=== PATIENT | female | born 1960 ===

== ENCOUNTER 2025-05-01 07:15 | Inpatient (IN) | payer OTHER ==
[~2025-05-01] VITALS: Ht 203.2 cm; Wt 59.0 kg
[2025-05-01] MEDS ORDERED: JANUMET 50-5001 EACH PO (07:46)
[2025-05-01] MEDS ORDERED: SIMVASTATIN5 MG (07:47)
[2025-05-01] MEDS ORDERED: ZESTRIL30 MG PO (07:47)
[2025-05-01] MEDS ORDERED: BETHANECHOL CHL50 MG PO (07:48)
[2025-05-01 07:52] VITALS: BP 113/73
[2025-05-01 08:17] LABS: BASO % 0.5 % (0.1-1.2); EOS # 0.13 (0.04-0.54); EOS % 2.2 % (0.7-7.0); HEMOGLOBIN 13.6 g/dL (11.2-15.7); LYMPH # 2.21 (1.18-3.74); LYMPH % 37.6 % (19.3-53.1); MEAN CORPUSCULAR HEMOGLOBIN 29.3 pg (25.6-32.2); MONO # 0.57 (0.24-0.82); MONO % 9.7 % (4.7-12.5); NEUT # 2.92 (1.56-6.13); NEUT % 49.8 % (34.0-71.1); PLATELET COUNT 288 K/uL (163-369); RED BLOOD COUNT 4.64 M/uL (3.93-5.22); RED CELL DISTRIBUTION WIDTH 13.2 % (11.6-14.4)
[2025-05-01 08:39] LABS: PH,URINE 6.5 (5.0-8.0); URINE APPEARANCE Clear; URINE BILIRRUBIN Negative (NEGATIVE); URINE BLOOD Negative; URINE COLOR Yellow; URINE GLUCOSE Negative (NEGATIVE); URINE KETONE Negative (NEGATIVE); URINE LEUKOCYTE Moderate; URINE NITRATE Negative; URINE PROTEIN Negative (NEGATIVE); URINE UROBILINOGEN 0.2 E.U./dl
[2025-05-01 08:44] LABS: INR 1.04; PARTIAL THROMBOPLASTIN TIME 27.3 SECONDS (22.0-34.0); PROTHROMBIN TIME 11.3 SECONDS (9.0-11.5); URINE EPITHELIAL CELLS 99.1 uL (0.0-38.8); URINE RBC 8.5 uL (0.0-20.8); URINE WBC 63.1 uL (0.0-23.2)
[2025-05-01 09:35] LABS: URINE BACTERIA > 9821.5 uL (0.0-1933); URINE CAST 0.14 uL (0.0-1.40)
[2025-05-01 09:36] LABS: URINE CRYSTALS MODERATE /HPF
[2025-05-01 13:06] LABS: BILIRUBIN TOTAL 0.37 mg/dL (0.3-1.2); CALCIUM 9.9 mg/dL (8.5-10.1); CREATININE SERUM 0.52 mg/dL (0.55-1.02); GFR 117.98; POTASSIUM 4.69 mEq/L (3.5-5.1)
[2025-05-22] MEDS ORDERED: CEFAZOLIN SODIUM 1,000 MG VIAL ONE (08:06)
[2025-05-22] MEDS ORDERED: TRANEXAMIC ACID 100MG/1ML (1000MG) AMPUL IV ONE (08:07)
[2025-05-22] MEDS ORDERED: OxyCODONE HCL/APAP UD (PERCOCET) PO PRN (09:45)
[2025-05-22] MEDS ORDERED: ONDANSETRON HCL 2 MG/ML VIAL IV PRN (09:45)
[2025-05-22] MEDS ORDERED: BUPIVACAINE HCL/MPF 0.5% 30ML VIAL ONE (10:05)
[2025-05-22] MEDS ORDERED: LIDOCAINE HCL 1%/EPINEPHRINE 20ML VIAL IJ ONE (10:05)
[2025-05-22] MEDS ORDERED: VANCOMYCIN HCL 1,000 MG VIAL ONE (10:05)
[2025-05-22] MEDS ORDERED: ISOPROPYL ALCOHOL 30 ML OUNCE TOP ONE (10:05)
[2025-05-22] MEDS ORDERED: MORPHINE SULFATE 4 MG/ML CARTRIDGE IV SCH (12:00)
[2025-05-22] MEDS ORDERED: CEFAZOLIN SODIUM 1,000 MG VIAL IV SCH (12:00)
[2025-05-22] MEDS ORDERED: MORPHINE SULFATE 4 MG/ML CARTRIDGE IV ONE (12:15)
[2025-05-22] MEDS ORDERED: MORPHINE SULFATE 4 MG/ML VIAL IV ONE (15:00)
[2025-05-22] MEDS ORDERED: ONDANSETRON HCL 2 MG/ML VIAL ONE (15:04)
[2025-05-22] MEDS ORDERED: ENALAPRILAT DIHYDRATE 1.25 MG/ML VIAL IV PRN (16:00)
[2025-05-22] MEDS ORDERED: INSULIN LISPRO 1,000 UNIT/10 ML UNITS SUBCUTANEO PRN (16:00)
[2025-05-22] MEDS ORDERED: DEXTROSE 50 % IN WATER 0.5 G/ML DISP.SYRIN IV PRN (16:00)
[2025-05-22] MEDS ORDERED: BETHANECHOL CHLORIDE 25 MG TABLET PO SCH (17:00)
[2025-05-22] MEDS ORDERED: SIMVASTATIN 40 MG TABLET PO SCH (17:00)
[2025-05-22 17:43] VITALS: BP 150/70
[2025-05-22 20:48] VITALS: BP 150/70
[2025-05-22] MEDS ORDERED: ORPHENADRINE CITRATE 100 MG TABLET PO SCH (21:00)
[2025-05-22] MEDS ORDERED: GABAPENTIN 100 MG CAPSULE PO SCH (21:00)
[2025-05-23] VITALS: BP 155/73
[2025-05-23 02:26] LABS: BASO % 0.3 % (0.1-1.2); HEMATOCRIT 33.6 % (34.1-44.9); HEMOGLOBIN 11.6 g/dL (11.2-15.7); LYMPH # 0.96 (1.18-3.74); LYMPH % 9.3 % (19.3-53.1); MEAN CORPUSCULAR HEMOGLOBIN 29.8 pg (25.6-32.2); MONO # 0.81 (0.24-0.82); MONO % 7.9 % (4.7-12.5); NEUT # 8.46 (1.56-6.13); NEUT % 82.2 % (34.0-71.1); PLATELET COUNT 258 K/uL (163-369); RED BLOOD COUNT 3.89 M/uL (3.93-5.22); RED CELL DISTRIBUTION WIDTH 13.5 % (11.6-14.4)
[2025-05-23 08:19] VITALS: BP 139/68
[2025-05-23] MEDS ORDERED: LISINOPRIL 10 MG TABLET PO SCH (09:00)
[2025-05-23] MEDS ORDERED: ENOXAPARIN SODIUM 30 MG/0.3 ML SYRINGE SUBCUTANEO SCH (09:00)
[2025-05-23] MEDS ORDERED: SOD FERRIC GLUC COMPLX/SUCROSE 62.5 MG/5 ML AMPUL IV SCH (11:21)
[2025-05-23] MEDS ORDERED: VITAMIN B COMPLEX 1 EACH PO SCH (11:21)
[2025-05-23] MEDS ORDERED: Cyanocobalamin/Mecobalamin 1 TAB.SL SL SCH (11:21)
[2025-05-23 11:45] LABS: COVID-19 AG NEGATIVE (NEGATIVE)
[2025-05-23 12:14] LABS: ALBUMIN 3.5 gm/dL (3.4-5.0); BILIRUBIN TOTAL 0.68 mg/dL (0.3-1.2); CALCIUM 8.9 mg/dL (8.5-10.1); CREATININE SERUM 0.42 mg/dL (0.55-1.02); GFR 150.95; GLOBULINA 3.1 G/DL (2.4-3.5); POTASSIUM 4.11 mEq/L (3.5-5.1); TOTAL PROTEIN 6.6 gm/dL (6.4-8.2)
[2025-05-23 16:19] VITALS: BP 140/78
[2025-05-23] MEDS ORDERED: OxyCODONE HCL 5 MG TABLET (ROXICODONE) PO PRN (16:45)
[2025-05-24 01:47] LABS: BASO % 0.3 % (0.1-1.2); HEMOGLOBIN 12.3 g/dL (11.2-15.7); LYMPH # 1.41 (1.18-3.74); LYMPH % 15.6 % (19.3-53.1); MEAN CORPUSCULAR HEMOGLOBIN 30.8 pg (25.6-32.2); MONO # 1.01 (0.24-0.82); MONO % 11.2 % (4.7-12.5); NEUT # 6.58 (1.56-6.13); NEUT % 72.7 % (34.0-71.1); PLATELET COUNT 254 K/uL (163-369); RED BLOOD COUNT 3.99 M/uL (3.93-5.22)
[2025-05-24 11:00] VITALS: BP 130/85
[2025-05-24] MEDS ORDERED: NORFLEX100MG PO (11:29)
[2025-05-24] MEDS ORDERED: GABAPENTIN100 MG PO (11:30)
[2025-05-24] MEDS ORDERED: XARELTO10 MG PO (11:30)
[2025-05-24] MEDS ORDERED: OXYCODONE HCL5 MG PO (11:30)
== END 2025-05-24 19:21 | DRG 470 ==
LOC: O/R 05-22 06:15 → SURH 05-22 07:00 → OB/GYN 05-22 14:34
PROVIDERS: ADMIT Orthopaedic Surgery; ATTEND Orthopaedic Surgery
PROC: 0SRD0JZ Replacement of Left Knee Joint with Synthetic Substitute, Open Approach (ICD-10-PCS; principal; 2025-05-22 07:00)
DX: M17.12 Unilateral primary osteoarthritis, left knee (principal); D62 Acute posthemorrhagic anemia; M85.662 Other cyst of bone, left lower leg; I10 Essential (primary) hypertension; E78.5 Hyperlipidemia, unspecified